=== PATIENT | female | born 1945 | race Caucasian/White ===

== ENCOUNTER 2019-07-11 10:10 | Emergency (ER) | payer MEDICARE, OTHER ==
[~2019-07-11] VITALS: Ht 162.6 cm; Wt 54.4 kg
== END 2019-07-11 13:45 | disposition home or self-care (01) ==
LOC: ED 10:10
DX: H57.12 Ocular pain, left eye (principal); H53.8 Other visual disturbances
CPT/HCPCS: 99283

== ENCOUNTER 2022-07-01 16:53 | Emergency (ER) | payer MEDICARE, OTHER ==
[~2022-07-01] VITALS: Ht 162.6 cm; Wt 54.4 kg
--- OUTSIDE RECORDS SUMMARY | 2022-07-01 18:36 | XMS ---
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 Anna has no Care Guidelines for this patient. Charleen VISIT COUNT (12 MO.) 1 MURALI Sanchez TOTAL 1 NOTE: Visits indicate total known visits. ED/C VISIT TRACKING (12 MO.) 07/01/2022 16:55 MURALI Mao [place] TYPE: Emergency COMPLAINT: - L CHEST PAIN INPATIENT VISIT TRACKING (12 MO.) No inpatient visits to display in this time frame [email or web address]
[2022-07-01 18:52] VITALS: BP 115/73
--- NOTE | 2022-07-01 22:57 | EKG ---
[facility] [address] [place] [address] Signed Sinus bradycardia Nonspecific T wave abnormality Abnormal ECG No previous ECGs available Confirmed by Jessica Arnold MD () on 07/01/2022 10:57:13 PM Electronically Signed By: JESSICA ARNOLD MD 07/01/22 2257 PATIENT NAME: TSERING YOUSSEF Electrocardiogram DATE OF : 49 PHYSICIAN: JESSICA ARNOLD MD REPORT #: [id number] REPORT IS CONFIDENTIAL AND NOT TO BE RELEASED WITHOUT AUTHORIZATION
== END 2022-07-01 18:53 | disposition home or self-care (01) ==
LOC: ED 16:53
DX: R07.89 Other chest pain (principal); M54.50 Low back pain, unspecified; W19.XXXA Unspecified fall, initial encounter
CPT/HCPCS: 36415; 71045; 80053; 83735; 84484; 85025; 93005; 93010; 99285-25

== ENCOUNTER 2022-09-07 16:21 | Emergency (ER) | payer MEDICARE, OTHER ==
[~2022-09-07] VITALS: Ht 162.6 cm; Wt 59.9 kg
--- OUTSIDE RECORDS SUMMARY | ~2022-09-07 | XMS | Continuity of Care Document ---
Demographics + + + | Address | [address] | | | [place] [address] | + + + | Preferred Language | Unknown | + + + | Marital Status | | + + + | Taoism Affiliation | Unknown | + + + | Race | White | + + + | Ethnic Group | Not or | + + + Author + + + | Author | [place] | + + + | Organization | [place] | + + + | Address | [address] | | | [place] [address] | + + + | Phone | | + + + Care Team Providers + + + + | Care Oracle Database Consultant Name | Role | Phone | + + + + Unavailable | Unavailable | + + + + Unavailable | Unavailable | + + + + Unavailable | Unavailable | + + + + Allergies and Intolerances + + + + + + | date | description | facility | reaction | severity | + + + + + + | (no date) | No Known Drug | [facility] | (no reaction) | (no severity) | | | Allergies | | | | + + + + + + Encounters No information. Functional Status No information. Immunizations No information. Medications + + + + | date | description | facility | + + + + | 2022-08-02 00:00 | Lidocaine | [facility] | + + + + | 2022-08-05 00:00 | OXYCODONE | [facility] | | | HCL/ACETAMINOPHEN | | + + + + | 2022-08-02 00:00 | DULAGLUTIDE | [facility] | + + + + | 2022-08-05 00:00 | DULAGLUTIDE | [facility] | + + + + | 2022-08-02 00:00 | DORZOLAMIDE HCL/TIMOLOL | [facility] | | | MALEAT | | + + + + | 2022-08-05 00:00 | DORZOLAMIDE HCL/TIMOLOL | [facility] | | | [facility] | | + + + + | 2022-08-02 00:00 | FAMOTIDINE | [facility] | + + + + | 2022-08-05 00:00 | FAMOTIDINE | [facility] | + + + + | 2022-08-02 00:00 | FLUOXETINE HCL | [facility] | + + + + | 2022-08-05 00:00 | FLUOXETINE HCL | [facility] | + + + + | 2022-08-02 00:00 | GABAPENTIN | [facility] | + + + + | 2022-08-05 00:00 | GABAPENTIN | [facility] | + + + + | 2022-08-02 00:00 | NITROFURANTOIN MONOHYD | [facility] | | | MACROCR | | + + + + | 2022-08-02 00:00 | ATORVASTATIN CALCIUM | [facility] | + + + + | 2022-08-05 00:00 | ATORVASTATIN CALCIUM | [facility] | + + + + | 2022-08-02 00:00 | CYCLOBENZAPRINE HCL | [facility] | + + + + | 2022-08-02 00:00 | OXYBUTYNIN CHLORIDE | [facility] | + + + + | 2022-08-05 00:00 | OXYBUTYNIN CHLORIDE | [facility] | + + + + Problems + + + + | date | description | facility | + + + + | 2019-07-11 00:00 | Pain in eye | [facility] | + + + + | 2019-07-11 00:00 | Pain in eye | [facility] | + + + + | 2022-07-01 00:00 | Left-sided chest wall pain | [facility] | | | | | + + + + | 2022-07-01 00:00 | Left-sided chest wall pain | [facility] | | | | | + + + + | 2022-07-01 16:55 | LOW BACK PAIN, UNSPECIFIED | [facility] | | | | | + + + + | 2022-07-01 16:55 | PLEURODYNIA | [facility] | + + + + | 2022-07-01 16:55 | OTHER CHEST PAIN | [facility] | + + + + | 2022-07-01 16:55 | UNSPECIFIED FALL, INITIAL | [facility] | | | ENCOUNTER | | + + + + | 2022-08-02 00:00 | Compression fracture of | [facility] | | | vertebra | | + + + + | 2022-08-02 00:00 | Acute low back pain | [facility] | + + + + | 2022-08-02 00:00 | Urinary tract infection | [facility] | + + + + | 2022-08-02 21:13 | TYPE 2 DIABETES MELLITUS | [facility] | | | WITHOUT COMPLICATIONS | | + + + + | 2022-08-02 21:13 | HYPERLIPIDEMIA, | [facility] | | | UNSPECIFIED | | + + + + | 2022-08-02 21:13 | LOW BACK PAIN, UNSPECIFIED | [facility] | | | | | + + + + | 2022-08-02 21:13 | MUSCLE SPASM OF BACK | [facility] | + + + + | 2022-08-02 21:13 | URINARY TRACT INFECTION, | [facility] | | | SITE NOT SPECIFIED | | + + + + | 2022-08-02 21:13 | UNSP FRACTURE OF FIRST | [facility] | | | LUMBAR VERTEBRA, INIT FOR C | | | | | | + + + + | 2022-08-02 21:13 | FALL (ON) (FROM) OTHER | [facility] | | | STAIRS AND STEPS, INITIAL E | | | | | | + + + + | 2022-08-02 21:13 | OTHER CORRECTION (CURRENT) | [facility] | | | DRUG [facility]APY | | + + + + | 2022-08-04 22:59 | TYPE 2 DIABETES MELLITUS | [facility] | | | WITHOUT COMPLICATIONS | | + + + + | 2022-08-04 22:59 | LOW BACK PAIN, UNSPECIFIED | [facility] | | | | | + + + + | 2022-08-04 22:59 | UNSP FRACTURE OF FIRST | [facility] | | | LUMBAR VERTEBRA, INIT FOR C | | | | | | + + + + | 2022-08-04 22:59 | UNSPECIFIED FALL, INITIAL | [facility] | | | ENCOUNTER | | + + + + | 2022-08-04 22:59 | 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 Results/Labs +--------+--------+ +---------+--------+---------+ | test | date | facility | value | unit | notes | +--------+--------+ +---------+--------+---------+ + + | Result panel 1 | + + + + + +-------+ + + | | 2022-07-01 | [facility] | 8.1 | (missing) | (missing) | | (unavailable | [facility]35[facility]07 [facility] | | | | + + + +-------+ + + + + | Result panel 2 | + + + + + +--------+ + + | | 2022-07-01 | [facility] | 4.56 | (missing) | (missing) | | (unavailable | [facility]07 [facility] | | | | + + + +--------+ + + + + | Result panel 3 | + + + + + +--------+ + + | | 2022-07-01 | [facility] | 14.2 | (missing) | (missing) | | (unavailable | [facility]07 [facility] | | | | + + + +--------+ + + + + | Result panel 4 | + + + + + +--------+ + + | | 2022-07-01 | [facility] | 42.7 | (missing) | (missing) | | (unavailable | [facility]35[facility]07 [facility] | | | | + + + +--------+ + + + + | Result panel 5 | + + + + + +--------+ + + | | 2022-07-01 | [facility] | 93.6 | (missing) | (missing) | | (unavailable | [facility]07 [facility] | | | | + + + +--------+ + + + + | Result panel 6 | + + + + + +--------+ + + | | 2022-07-01 | [facility] | 31.1 | (missing) | (missing) | | (unavailable | [facility]:07 [facility] | | | | + + + +--------+ + + + + | Result panel 7 | + + + + + +--------+ + + | | 2022-07-01 | [facility] | 33.3 | (missing) | (missing) | | (unavailable | [facility]07 [facility] | | | | + + + +--------+ + + + + | Result panel 8 | + + + + + +--------+ + + | | 2022-07-01 | [facility] | 12.6 | (missing) | (missing) | | (unavailable | [facility]07 [facility] | | | | + + + +--------+ + + + + | Result panel 9 | + + + + + +-------+ + + | | 2022-07-01 | [facility] | 281 | (missing) | (missing) | | (unavailable | [facility]07 [facility] | | | | + + + +-------+ + + + + | Result panel 10 | + + + + + +--------+ + + | | 2022-07-01 | [facility] | 76.4 | (missing) | (missing) | | (unavailable | [facility]07 [facility] | | | | + + + +--------+ + + + + | Result panel 11 | + + + + + +--------+ + + | | 2022-07-01 | [facility] | 14.2 | (missing) | (missing) | | (unavailable | [facility]07 [facility] | | | | + + + +--------+ + + + + | Result panel 12 | + + + + + +-------+ + + | | 2022-07-01 | [facility] | 8.0 | (missing) | (missing) | | (unavailable | [facility] | | | | + + + +-------+ + + + + | Result panel 13 | + + + + + +-------+ + + | | 2022-07-01 | [facility] | 0.7 | (missing) | (missing) | | (unavailable | [facility]07 [facility] | | | | + + + +-------+ + + + + | Result panel 14 | + + + + + +-------+ + + | | 2022-07-01 | [facility] | 0.7 | (missing) | (missing) | | (unavailable | [facility]07 [facility] | | | | + + + +-------+ + + + + | Result panel 15 | + + + + + +-------+---------+ + | | 2022-07-01 | [facility] | 112 | mg/dL | (missing) | | (unavailable | [facility]:07 [facility] | | | | + + + +-------+---------+ + + + | Result panel 16 | + + + + + +------+---------+ + | | 2022-07-01 | [facility] | 21 | mg/dL | (missing) | | (unavailable | [facility]07 [facility] | | | | + + + +------+---------+ + + + | Result panel 17 | + + + + + +--------+---------+ + | | 2022-07-01 | [facility] | 0.85 | mg/dL | (missing) | | (unavailable | [facility] | | | | + + + +--------+---------+ + + + | Result panel 18 | + + + + + +------+ + + | | 2022-07-01 | [facility] | 71 | (missing) | (missing) | | (unavailable | [facility]07 [facility] | | | | + + + +------+ + + + + | Result panel 19 | + + + + + +---------+ + + | | 2022-07-01 | [facility] | 24.70 | (missing) | (missing) | | (unavailable | [facility]07 [facility] | | | | + + + +---------+ + + + + | Result panel 20 | + + + + + +-------+ + + | | 2022-07-01 | [facility] | 139 | (missing) | (missing) | | (unavailable | [facility]07 [facility] | | | | + + + +-------+ + + + + | Result panel 21 | + + + + + +-------+ + + | | 2022-07-01 | [facility] | 3.9 | (missing) | (missing) | | (unavailable | [facility] | | | | + + + +-------+ + + + + | Result panel 22 | + + + + + +-------+ + + | | 2022-07-01 | [facility] | 103 | (missing) | (missing) | | (unavailable | [facility]07 [facility] | | | | + + + +-------+ + + + + | Result panel 23 | + + + + + +------+ + + | | 2022-07-01 | [facility] | 28 | (missing) | (missing) | | (unavailable | [facility]07 [facility] | | | | + + + +------+ + + + + | Result panel 24 | + + + + + +--------+ + + | | 2022-07-01 | [facility] | 11.9 | (missing) | (missing) | | (unavailable | [facility] | | | | + + + +--------+ + + + + | Result panel 25 | + + + + + +-------+---------+ + | | 2022-07-01 | [facility] | 9.0 | mg/dL | (missing) | | (unavailable | [facility]07 [facility] | | | | + + + +-------+---------+ + + + | Result panel 26 | + + + + + +-------+---------+ + | | 2022-07-01 | [facility] | 2.2 | mg/dL | (missing) | | (unavailable | [facility]07 [facility] | | | | + + + +-------+---------+ + + + | Result panel 27 | + + + + + +-------+ + + | | 2022-07-01 | [facility] | 7.9 | (missing) | (missing) | | (unavailable | [facility]07 [facility] | | | | + + + +-------+ + + + + | Result panel 28 | + + + + + +-------+ + + | | 2022-07-01 | [facility] | 3.5 | (missing) | (missing) | | (unavailable | [facility]07 [facility] | | | | + + + +-------+ + + + + | Result panel 29 | + + + + + +-------+ + + | | 2022-07-01 | [facility] | 4.4 | (missing) | (missing) | | (unavailable | [facility] | | | | + + + +-------+ + + + + | Result panel 30 | + + + + + +--------+ + + | | 2022-07-01 | [facility] | 0.80 | (missing) | (missing) | | (unavailable | [facility] | | | | + + + +--------+ + + + + | Result panel 31 | + + + + + +-------+ + + | | 2022-07-01 | [facility] | 0.9 | (missing) | (missing) | | (unavailable | [facility] | | | | + + + +-------+ + + + + | Result panel 32 | + + + + + +------+ + + | | 2022-07-01 | [facility] | 24 | (missing) | (missing) | | (unavailable | [facility]07 [facility] | | | | + + + +------+ + + + + | Result panel 33 | + + + + + +------+ + + | | 2022-07-01 | [facility] | 25 | (missing) | (missing) | | (unavailable | [facility]07 [facility] | | | | + + + +------+ + + + + | Result panel 34 | + + + + + +-------+ + + | | 2022-07-01 | [facility] | 130 | (missing) | (missing) | | (unavailable | [facility]07 [facility] | | | | + + + +-------+ + + + + | Result panel 35 | + + + + + +-------+ + + | | 2022-07-01 | [facility] | 4.0 | (missing) | (missing) | | (unavailable | [facility]07 [facility] | | | | + + + +-------+ + + + + | Result panel 36 | + + + + + + + + + | | 2022-08-02 | [facility] | YELLOW | (missing) | (missing) | | (unavailable | :17:07 | [facility] | | | | + + + + + + + + + | Result panel 37 | + + + + + + + + + | | 2022-08-02 | [facility] | NORMAL | (missing) | (missing) | | (unavailable | :17:07 | [facility] | | | | + + + + + + + + + | Result panel 38 | + + + + + + + + + | | 2022-08-02 | [facility] | POSITIVE | (missing) | (missing) | | (unavailable | 22:17:07 [facility] | | | | + + + + + + + + + | Result panel 39 | + + + + + +---------+ + + | | 2022-08-02 | [facility] | TRACE | (missing) | (missing) | | (unavailable | [facility]17:07 [facility] | | | | + + + +---------+ + + + + | Result panel 40 | + + + + + +-------+ + + | | 2022-08-02 | [facility] | 2-3 | (missing) | (missing) | | (unavailable | [facility]17:07 [facility] | | | | + + + +-------+ + + + + | Result panel 41 | + + + + + +---------+ + + | | 2022-08-02 | [facility] | 21-40 | (missing) | (missing) | | (unavailable | [facility]17:07 [facility] | | | | + + + +---------+ + + + + | Result panel 42 | + + + + + + + + + | | 2022-08-02 | [facility] | SQUAMOUS 1+ | (missing) | (missing) | | (unavailable | [facility]17:07 [facility] | | | | + + + + + + + + + | Result panel 43 | + + + + + + + + + | | 2022-08-02 | [facility] | NONE SEEN | (missing) | (missing) | | (unavailable | [facility]17:07 [facility] | | | | + + + + + + + + + | Result panel 44 | + + + + + +------+ + + | | 2022-08-02 | [facility] | 4+ | (missing) | (missing) | | (unavailable | [facility]17:07 [facility] | | | | + + + +------+ + + + + | Result panel 45 | + + + + + + + + + | | 2022-08-02 | [facility] | NONE SEEN | (missing) | (missing) | | (unavailable | [facility]17:07 [facility] | | | | + + + + + + + + + | Result panel 46 | + + + + + +-------+ + + | | 2022-08-02 | [facility] | Yes | (missing) | (missing) | | (unavailable | [facility]17:07 [facility] | | | | + + + +-------+ + + + + | Result panel 47 | + + + + + +---------+ + + | | 2022-08-02 | [facility] | CLEAR | (missing) | (missing) | | (unavailable | [facility]17:07 [facility] | | | | + + + +---------+ + + + + | Result panel 48 | + + + + + + + + + | | 2022-08-02 | [facility] | YELLOW | (missing) | (missing) | | (unavailable | 22::07 [facility] | | | | + + + + + + + + + | Result panel 49 | + + + + + +---------+ + + | | 2022-08-02 | [facility] | CLEAR | (missing) | (missing) | | (unavailable | 22::07 [facility] | | | | + + + +---------+ + + + + | Result panel 50 | + + + + + + + + + | | 2022-08-02 | [facility] | NEGATIVE | (missing) | (missing) | | (unavailable | 22::07 [facility] | | | | + + + + + + + + + | Result panel 51 | + + + + + + + + + | | 2022-08-02 | [facility] | NEGATIVE | (missing) | (missing) | | (unavailable | [facility]17:07 [facility] | | | | + + + + + + + + + | Result panel 52 | + + + + + +---------+ + + | | 2022-08-02 | [facility] | TRACE | (missing) | (missing) | | (unavailable | [facility]17:07 [facility] | | | | + + + +---------+ + + + + | Result panel 53 | + + + + + + + + + | | 2022-08-02 | [facility] | >=1.030 | (missing) | (missing) | | (unavailable | [facility]17:07 [facility] | | | | + + + + + + + + + | Result panel 54 | + + + + + +---------+ + + | | 2022-08-02 | [facility] | SMALL | (missing) | (missing) | | (unavailable | [facility]17:07 [facility] | | | | + + + +---------+ + + + + | Result panel 55 | + + + + + +-------+ + + | | 2022-08-02 | [facility] | 5.0 | (missing) | (missing) | | (unavailable | [facility]17:07 [facility] | | | | + + + +-------+ + + + + | Result panel 56 | + + + + + + + + + | | 2022-08-02 | [facility] | NEGATIVE | (missing) | (missing) | | (unavailable | [facility]17:07 [facility] | | | | + + + + + + + + + | Result panel 57 | + + + + + + + + + | | 2022-08-02 | [facility] | NORMAL | (missing) | (missing) | | (unavailable | [facility]17:07 [facility] | | | | + + + + + + + + + | Result panel 58 | + + + + + + + + + | | 2022-08-02 | [facility] | NEGATIVE | (missing) | (missing) | | (unavailable | [facility]17:07 [facility] | | | | + + + + + + + + + | Result panel 59 | + + + + + + + + + | | 2022-08-02 | [facility] | POSITIVE | (missing) | (missing) | | (unavailable | [facility]17:07 [facility] | | | | + + + + + + + + + | Result panel 60 | + + + + + +---------+ + + | | 2022-08-02 | [facility] | TRACE | (missing) | (missing) | | (unavailable | [facility]17:07 [facility] | | | | + + + +---------+ + + + + | Result panel 61 | + + + + + +-------+ + + | | 2022-08-02 | [facility] | 2-3 | (missing) | (missing) | | (unavailable | :17:07 [facility] | | | | + + + +-------+ + + + + | Result panel 62 | + + + + + +---------+ + + | | 2022-08-02 | [facility] | 21-40 | (missing) | (missing) | | (unavailable | :17:07 [facility] | | | | + + + +---------+ + + + + | Result panel 63 | + + + + + + + + + | | 2022-08-02 | [facility] | SQUAMOUS 1+ | (missing) | (missing) | | (unavailable | 22:17:07 [facility] | | | | + + + + + + + + + | Result panel 64 | + + + + + + + + + | | 2022-08-02 | [facility] | NONE SEEN | (missing) | (missing) | | (unavailable | [facility]17:07 [facility] | | | | + + + + + + + + + | Result panel 65 | + + + + + +------+ + + | | 2022-08-02 | [facility] | 4+ | (missing) | (missing) | | (unavailable | [facility]17:07 [facility] | | | | + + + +------+ + + + + | Result panel 66 | + + + + + + + + + | | 2022-08-02 | [facility] | NONE SEEN | (missing) | (missing) | | (unavailable | [facility]17:07 [facility] | | | | + + + + + + + + + | Result panel 67 | + + + + + +-------+ + + | | 2022-08-02 | [facility] | Yes | (missing) | (missing) | | (unavailable | [facility]17:07 [facility] | | | | + + + +-------+ + + + + | Result panel 68 | + + + + + + + + + | | 2022-08-02 | [facility] | NEGATIVE | (missing) | (missing) | | (unavailable | [facility]17:07 [facility] | | | | + + + + + + + + + | Result panel 69 | + + + + + +---------+ + + | | 2022-08-02 | [facility] | TRACE | (missing) | (missing) | | (unavailable | [facility]17:07 [facility] | | | | + + + +---------+ + + + + | Result panel 70 | + + + + + + + + + | | 2022-08-02 | [facility] | >=1.030 | (missing) | (missing) | | (unavailable | [facility]17:07 [facility] | | | | + + + + + + + + + | Result panel 71 | + + + + + +---------+ + + | | 2022-08-02 | [facility] | SMALL | (missing) | (missing) | | (unavailable | [facility]17:07 [facility] | | | | + + + +---------+ + + + + | Result panel 72 | + + + + + +-------+ + + | | 2022-08-02 | [facility] | 5.0 | (missing) | (missing) | | (unavailable | ::07 | [facility] | | | | + + + +-------+ + + + + | Result panel 73 | + + + + + + + + + | | 2022-08-02 | [facility] | NEGATIVE | (missing) | (missing) | | (unavailable | ::07 | [facility] | | | | + + + + + + + Social History No information. Vital Signs + + + +---------+ | date | measurement | value | units | + + + +---------+ | 2022-07-01 00:00 | BMI | 20.6 | kg/m2 | + + + +---------+ | 2022-07-01 00:00 | BP_diastolic | 73 | mmHg | + + + +---------+ | 2022-07-01 00:00 | BP_systolic | 115 | mmHg | + + + +---------+ | 2022-07-01 00:00 | heart_rate | 56 | /min | + + + +---------+ | 2022-07-01 00:00 | height_metric | 162.56 | cm | + + + +---------+ | 2022-07-01 00:00 | height_standard | 64 | in | + + + +---------+ | 2022-07-01 00:00 | o2_saturation | 98 | % | + + + +---------+ | 2022-07-01 00:00 | respiration_rate | 18 | /min | + + + +---------+ | 2022-07-01 00:00 | temperature_metric | 36.39 | C | | | | | | + + + +---------+ | 2022-07-01 00:00 | | 97.5 | F | | | temperature_standar | | | | | d | | | + + + +---------+ | 2022-07-01 00:00 | weight_metric | 54.43 | kg | + + + +---------+ | 2022-07-01 00:00 | weight_standard | 120 | lb | + + + +---------+ | 2022-08-02 00:00 | BMI | 24.5 | kg/m2 | + + + +---------+ | 2022-08-02 00:00 | BP_diastolic | 79 | mmHg | + + + +---------+ | 2022-08-02 00:00 | BP_systolic | 136 | mmHg | + + + +---------+ | 2022-08-02 00:00 | heart_rate | 66 | /min | + + + +---------+ | 2022-08-02 00:00 | height_metric | 162.56 | cm | + + + +---------+ | 2022-08-02 00:00 | height_standard | 64 | in | + + + +---------+ | 2022-08-02 00:00 | o2_saturation | 97 | % | + + + +---------+ | 2022-08-02 00:00 | respiration_rate | 15 | /min | + + + +---------+ | 2022-08-02 00:00 | temperature_metric | 36.78 | C | | | | | | + + + +---------+ | 2022-08-02 00:00 | | 98.2 | F | | | temperature_standar | | | | | d | | | + + + +---------+ | 2022-08-02 00:00 | weight_metric | 64.86 | kg | + + + +---------+ | 2022-08-02 00:00 | weight_standard | 142.99 | lb | + + + +---------+ | 2022-08-02 00:00 | weight_standard | 143 | lb | + + + +---------+ | 2022-08-04 00:00 | BMI | 24.3 | kg/m2 | + + + +---------+ | 2022-08-04 00:00 | height_metric | 162.56 | cm | + + + +---------+ | 2022-08-04 00:00 | height_standard | 64 | in | + + + +---------+ | 2022-08-04 00:00 | weight_metric | 64.2 | kg | + + + +---------+ | 2022-08-04 00:00 | weight_standard | 141.54 | lb | + + + +---------+ | 2022-08-05 00:00 | BP_diastolic | 81 | mmHg | + + + +---------+ | 2022-08-05 00:00 | BP_systolic | 141 | mmHg | + + + +---------+ | 2022-08-05 00:00 | heart_rate | 67 | /min | + + + +---------+ | 2022-08-05 00:00 | o2_saturation | 94 | % | + + + +---------+ | 2022-08-05 00:00 | respiration_rate | 16 | /min | + + + +---------+ | 2022-08-05 00:00 | temperature_metric | 36.72 | C | | | | | | + + + +---------+ | 2022-08-05 00:00 | | 98.1 | F | | | temperature_standar | | | | | d | | | + + + +---------+"
--- OUTSIDE RECORDS SUMMARY | ~2022-09-07 | XMS | Continuity of Care Document ---
Demographics + + + | Address | [address] | | | [place] [address] | + + + | Preferred Language | Unknown | + + + | Marital Status | | + + + | Oriental Orthodox Affiliation | Unknown | + + + | Race | White | + + + | Ethnic Group | Not or | + + + Author + + + | Author | [facility] | + + + | Organization | [facility] | + + + | Address | [address] | | | [place] [address] | + + + | Phone | | + + + Care Team Providers + + + + | Care Quality Process Auditor Name | Role | Phone | + [...] | 2022-08-02 00:00 | Lidocaine | [facility] | + + + + | 2022-08-05 00:00 | OXYCODONE | [facility] | | | HCL/ACETAMINOPHEN | | + + + + | 2022-08-02 00:00 | DULAGLUTIDE | [facility] | + + + + | 2022-08-05 00:00 | DULAGLUTIDE | [facility] | + + + + | 2022-08-02 00:00 | DORZOLAMIDE HCL/TIMOLOL | [facility] | | | MALEAT | | + + + + | 2022-08-05 00:00 | DORZOLAMIDE HCL/TIMOLOL | [facility] | | | MALEAT | | + + + + | 2022-08-02 00:00 | FAMOTIDINE | [facility] | + + + + | 2022-08-05 00:00 | FAMOTIDINE | [facility] | + + + + | 2022-08-02 00:00 | FLUOXETINE HCL | [facility] | + + + + | 2022-08-05 00:00 | FLUOXETINE HCL | [facility] | + + + + | 2022-08-02 00:00 | GABAPENTIN | [facility] | + + + + | 2022-08-05 00:00 | GABAPENTIN | [facility] | + + + + | 2022-08-02 00:00 | NITROFURANTOIN MONOHYD | [facility] | | | MACROCR | | + + + + | 2022-08-02 00:00 | ATORVASTATIN CALCIUM | [facility] | + + + + | 2022-08-05 00:00 | ATORVASTATIN CALCIUM | [facility] | + + + + | 2022-08-02 00:00 | CYCLOBENZAPRINE HCL | [facility] | + + + + | 2022-08-02 00:00 | OXYBUTYNIN CHLORIDE | [facility] | + + + + | 2022-08-05 00:00 | OXYBUTYNIN CHLORIDE | [facility] | + + + + Problems + + + + | date | description | facility | + + + + | 2019-07-11 00:00 | Pain in eye | [facility] | + + + + | 2019-07-11 00:00 | Pain in eye | [facility] | + + + + | 2022-07-01 00:00 | Left-sided chest wall pain | [facility] | | | | | + + + + | 2022-07-01 00:00 | Left-sided chest wall pain | [facility] | | | | | + + [...] 2022-08-02 00:00 | Compression fracture of | [facility] | | | vertebra | | + + + + | 2022-08-02 00:00 | Acute low back pain | [facility] | + + + + | 2022-08-02 00:00 | Urinary tract infection | [facility] | + + + + | 2022-08-02 [...] + + | 2022-08-02 21:13 | OTHER SENIOR CARE (CURRENT) | [facility] | | | DRUG [...] + + | 2022-08-04 22:59 | OTHER BEHAVIORAL HEALTH CONSULTANT (CURRENT) | [facility] | | | DRUG [...]
[~2022-09-07 16:21] MED LIST: ATORVASTATIN CA40 MG PO; CYCLOBENZAPRINE5 MG PO; DORZOLAMIDE-TIM10 ML OPTH; FAMOTIDINE40 MG PO; FLUOXETINE HCL10 MG PO; GABAPENTIN300 MG PO; LIDODERM1 EACH TD; MACROBID 100 M100 MG PO; OXYBUTYNIN CHLOR5 M1 PO; PERCOCET 5-3251 EACH PO; TRULICITY1.5 MG/0.5 SUB-Q
--- OUTSIDE RECORDS SUMMARY | 2022-09-07 16:25 | XMS ---
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 Anna has no Care Guidelines for this patient. Charleen VISIT COUNT (12 MO.) 4 MURALI Sanchez TOTAL 4 NOTE: Visits indicate total known visits. 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 - Type 2 diabetes mellitus without complications - Unspecified fall, initial encounter - Unspecified fracture of first lumbar vertebra, initial encounter for closed fracture 08/02/2022 21:13 MURALI Mao [place] TYPE: Emergency COMPLAINT: - FALL DIAGNOSES: - Fall (on) (from) other stairs and steps, initial encounter - Hyperlipidemia, unspecified - Low back pain, unspecified - Muscle spasm of back - Other fci (current) drug therapy - Type 2 diabetes mellitus without complications - Unspecified fracture of first lumbar vertebra, initial encounter for closed fracture - Urinary tract infection, site not specified 07/01/2022 16:55 MURALI Mao [place] TYPE: Emergency COMPLAINT: - L CHEST PAIN DIAGNOSES: - Low back pain, unspecified - Other chest pain - Pleurodynia - Unspecified fall, initial encounter INPATIENT VISIT TRACKING (12 MO.) No inpatient visits to display in this time frame [email or web address]
[2022-09-07] MEDS ORDERED: CEPHALEXIN500 M1 PO (22:24)
[2022-09-07 22:41] VITALS: BP 116/82
== END 2022-09-07 22:44 | disposition home or self-care (01) ==
LOC: ED 16:21
DX: M54.9 Dorsalgia, unspecified (principal); G89.29 Other chronic pain; N39.0 Urinary tract infection, site not specified; E87.6 Hypokalemia; Z79.899 Other long term (current) drug therapy; E11.9 Type 2 diabetes mellitus without complications
CPT/HCPCS: 36415; 80053; 81001; 85025; A9270; J7121